=== PATIENT | male | born 1995 | race Caucasian/White ===

== ENCOUNTER 2023-02-13 09:31 | Emergency (ER) | payer SELFPAY ==
[2023-02-13] MEDS ORDERED: Lidocaine 1% 10 ML MDV INJECT ONE (09:46)
[2023-02-13] MEDS ORDERED: Diphtheria,Pertussis(Acell),Tetanus Vaccine 0.5 ML Syringe IM ONE (09:46)
== END 2023-02-13 10:11 | disposition home or self-care (01) ==
LOC: VM.ED 09:31
DX: S61.211A Laceration without foreign body of left index finger without damage to nail, initial encounter (principal); W26.8XXA Contact with other sharp object(s), not elsewhere classified, initial encounter
CPT/HCPCS: 12001; 90471; 90715; 99282-25; J3490